=== PATIENT | male | born 1970 | race Hispanic/Latino ===

== ENCOUNTER 2017-12-12 21:55 | Emergency (ER) | payer SELFPAY ==
--- NOTE | 2017-12-13 00:53 | Emergency Department Report ---
Chief Complaint: Extremity Injury, Lower Stated Complaint: LEG PAIN Time Seen by Provider: 12/13/17 00:21 - HPI History of Present Illness: This is a 47-year-old male nontoxic, well nourished in appearance, no acute signs of distress presents to the ED with c/o of bleeding varicose vein of the right lower leg. Patient stated he was in the shower and noticed significant amount of blood which are looked at her varicose veins which has been bleeding. Patient stated that bleeding is controlled with pressure but when pressure is not applied bleeding reoccurs. Patient denies any trauma to the area. Patient denies any numbness, tingling, fever, chills, nausea, vomiting, chest pain short of breath. Patient denies any calf pain or calf tenderness. Denies any history of DVT or SVT. - Exam Vital Signs: Vital Signs 12/12/17 21:55 Temperature 98.1 F Pulse Rate 82 Respiratory 18 Rate Blood Pressure 158/89 O2 Sat by Pulse 93 Oximetry Physical Exam: GENERAL: The patient is a well-developed, well-nourished in no apparent distress. Patient is alert and acting appropriately for age. Alert and oriented 3, no apparent distress, normal gait, atraumatic. LUNGS: Clear to auscultation. Non labor breathing. No intercostal retractions. Symmetrical with respiration, no wheezing, no rales, or crackles. HEART: Regular rate and rhythm without murmur, rubs or gallops. No reproducible. S1, S2 present, regular rate and rhythm without murmur, no rubs, no gallops. EXTREMITIES: Left posterior LLE varicose vein with bleeding. No calf tenderness or swelling. Without any cyanosis, clubbing, rash, lesions or edema. Peripheral pulses intact. Capillary refill less than 2 seconds. Full range of motion bilaterally. MSE screening note: Focused history and physical exam performed. Due to findings the following was ordered: 1- This initial assessment/diagnostic orders/clinical plan/ treatment(s) is/are subject to change based on pt's health status, clinical progression and re- assessment by fellow clinical providers in the ED. Further treatment and workup at subsequent clinical provers discretion. Patient/guardians urged not to elope from ED as their condition may be serious if not clinically assessed and managed. 2-CBC, BMP, PT,INR 3-hemostatic sponge placed with sterile 4 x 4 and pressor dressing with Becky. 4-patient will be moved to the main side to be seen by MD 5-Charge nurse aware and stated will transfer the patient to a room. ED Disposition for MSE Condition: Stable
[2017-12-13 01:23] LABS: Basophils % (Auto) 0.6 % (0.0-1.8); Eosinophils # (Auto) 0.1 K/mm3 (0.0-0.4); Eosinophils % (Auto) 1.5 % (0.0-4.3); Hematocrit 45.2 % (35.5-45.6); Hemoglobin 15.1 gm/dl (11.8-15.2); Lymphocytes # (Auto) 2.5 K/mm3 (1.2-5.4); Lymphocytes % (Auto) 36.2 % (13.4-35.0); Mean Corpuscular HGB Conc 34 % (32-34); Mean Corpuscular Hemoglobin 29 pg (28-32); Mean Corpuscular Volume 86 fl (84-94); Monocytes # (Auto) 0.6 K/mm3 (0.0-0.8); Monocytes % (Auto) 8.1 % (0.0-7.3); Platelet Count 177 K/mm3 (140-440); Red Blood Count 5.24 M/mm3 (3.65-5.03); Red Cell Distribution Width 13.3 % (13.2-15.2)
[2017-12-13] MEDS ORDERED: XYLOCAINE 1%/ EPI 1:100,000 INFILTRATI ONE (01:23)
[2017-12-13 01:38] LABS: BUN/Creatinine Ratio 14; Blood Urea Nitrogen 13 mg/dL (9-20); Calcium 8.7 mg/dL (8.4-10.2); Hemolysis Index 3
--- NOTE | 2017-12-13 01:50 | Emergency Department Report ---
ED General Adult HPI - General Chief complaint: Extremity Injury, Lower Stated complaint: LEG PAIN Time Seen by Provider: 12/13/17 00:21 Source: patient Mode of arrival: Ambulatory Limitations: No Limitations - History of Present Illness Initial comments: Mrs. Savage is a 47-year-old male with history of hypertension and asthma. He has bleeding from varicose vein. This occurred while he was in the shower. Left lower leg. Bleeding would not resolve with pressure alone. He denies pain. He denies trauma. -: Sudden, hour(s) (6) Location: left, lower extremity Associated Symptoms: denies other symptoms - Related Data Allergies Allergy/AdvReac Type Severity Reaction Status Date / Time clindamycin Allergy Rash Verified 12/12/17 22:30 peanut Allergy Anaphylaxis Verified 12/12/17 22:30 Penicillins Allergy Rash Verified 12/12/17 22:30 ED Review of Systems ROS: Stated complaint: LEG PAIN Other details as noted in HPI Constitutional: denies: fever, malaise Respiratory: denies: orthopnea Cardiovascular: denies: chest pain Gastrointestinal: denies: abdominal pain Hematological/Lymphatic: denies: easy bleeding, easy bruising, swollen glands ED Past Medical Hx - Past Medical History Previous Medical History?: Yes Hx Hypertension: Yes Hx Asthma: Yes - Surgical History Past Surgical History?: Yes Additional Surgical History: Hernia repair, ankle, foot - Social History Smoking Status: Never Smoker Substance Use Type: None ED Physical Exam - General Limitations: No Limitations General appearance: alert, in no apparent distress - Head Head exam: Present: atraumatic, normocephalic - Eye Eye exam: Present: normal appearance - ENT ENT exam: Present: mucous membranes moist - Neck Neck exam: Present: normal inspection - Respiratory Respiratory exam: Absent: respiratory distress - Neurological Exam Neurological exam: Present: alert, oriented X3 - Psychiatric Psychiatric exam: Present: normal affect, normal mood - Skin Skin exam: Present: warm, dry, normal color, other (numerous varicose veins in both extremities with venous stasis changes small punctate opening left posterior lower leg with venous bleeding). Absent: rash ED Course Vital Signs 12/12/17 21:55 Temperature 98.1 F Pulse Rate 82 Respiratory 18 Rate Blood Pressure 158/89 O2 Sat by Pulse 93 Oximetry - Laceration /Wound Repair Left Lower Leg Wound Location: lower extremity Wound Explored: clean Anesthesia: Lidocaine w/ Epi Volume Anesthetic (ccs): 5 Wound Debrided: minimal Wound Repaired With: sutures Suture Size/Type: 4:0, nylon Number of Sutures: 3 Layer Closure?: No Sterile Dressing Applied?: Yes Progress: 2 figure of eight sutures and one simple suture ligated varicose vein, also closed skin opening. Bleeding controlled. ED Medical Decision Making - Lab Data Result diagrams: 12/13/17 01:12 12/13/17 01:12 - Medical Decision Making Bleeding from varicose vein left lower extremity controlled with sutures. Tetanus status up-to-date. Patient and understand wound care instructions. Sutures to be removed in 7 days. Critical care attestation.: If time is entered above; I have spent that time in minutes in the direct care of this critically ill patient, excluding procedure time. ED Disposition Clinical Impression: Bleeding from varicose veins of left lower extremity Disposition: DC-01 TO HOME OR SELFCARE Is pt being admited?: No Does the pt Need Aspirin: No Condition: Stable Instructions: Varicose Veins (ED) Additional Instructions: Please have sutures removed in 7 days. Time of Disposition: 01:50
[2017-12-13 02:18] LABS: INR 0.97 (0.87-1.13)
[2017-12-13 02:19] LABS: Partial Thromboplastin Time 28.6 Sec. (24.2-36.6)
[2017-12-13 05:24] VITALS: BP 154/87
== END 2017-12-13 01:48 | disposition home or self-care (01) ==
LOC: ED 21:55
DX: I83.892 Varicose veins of left lower extremity with other complications (principal); I10 Essential (primary) hypertension; J45.909 Unspecified asthma, uncomplicated; Z88.0 Allergy status to penicillin; Z91.010 Allergy to peanuts; Z88.1 Allergy status to other antibiotic agents
CPT/HCPCS: 36415; 80048; 85025; 85610; 85730; 99283

== ENCOUNTER → 2019-03-25 | Outpatient (CLI) | payer BC | END | disposition home or self-care (01) | LOC: SLR 11:00 | PROVIDERS: ATTEND Internal Medicine Critical Care Medicine | DX: G47.33 Obstructive sleep apnea (adult) (pediatric) (principal); R06.83 Snoring; R40.0 Somnolence | CPT/HCPCS: 95810 ==

== ENCOUNTER → 2019-04-30 | Outpatient (CLI) | payer BC | END | disposition home or self-care (01) | LOC: SLR 11:00 | PROVIDERS: ATTEND Internal Medicine Critical Care Medicine | DX: G47.33 Obstructive sleep apnea (adult) (pediatric) (principal); I10 Essential (primary) hypertension; J45.909 Unspecified asthma, uncomplicated | CPT/HCPCS: 95811 ==